=== PATIENT | male | born 1960 | race African-American/Black ===

== ENCOUNTER 2018-01-26 09:54 | Inpatient (IN) | payer OTHER ==
[2018-01-26 11:21] VITALS: BMI 29.8
--- NOTE | 2018-01-26 13:08 | HP ---
CIWA Score - CIWA Score Nausea/Vomitin-No Nausea/No Vomiting Muscle Tremors: 4-Moderate,w/Arms Extend Anxiety: 4-Mod. Anxious/Guarded Agitation: 4-Moderately Restless Paroxysmal Sweats: 1-Minimal Palms Moist Orientation: 0-Oriented Tacttile Disturbances: 2-Mild Itch/Numbness/Burn Auditory Disturbances: 0-None Visual Disturbances: 0-None Headache: 0-None Present CIWA-Ar Total Score: 15 Admission ROS S - HPI Chief Complaint: withdrawal sx from alcohol longest sobriety 1 year Allergies/Adverse Reactions: Allergies Allergy/AdvReac Type Severity Reaction Status Date / Time No Known Allergies Allergy Verified 01/26/18 13:03 History of Present Illness: 57 years old male with long history of alcohol dependence has hypertension gerd positive ppd and bipolar ii is admitted to detox Exam Limitations: No Limitations - Ebola screening Have you traveled outside of the country in the last 21 days: No (N) Have you had contact with anyone from an Ebola affected area: No Have you been sick,other than usual withdrawal symptoms: No Do you have a fever: No - Review of Systems Constitutional: Changes in sleep, Weight Stable EENT: reports: No Symptoms Reported Respiratory: reports: No Symptoms reported Cardiac: reports: No Symptoms Reported GI: reports: Nausea, Indigestion, Abdominal cramping : reports: No Symptoms Reported Musculoskeletal: reports: No Symptoms Reported Integumentary: reports: No Symptoms Reported Neuro: reports: Tremors Endocrine: reports: No Symptoms Reported Hematology: reports: No Symptoms Reported Psychiatric: reports: Judgement Intact, Orientated x3, Anxious, Depressed Other Systems: Reviewed and Negative Patient History - Patient Medical History Hx Anemia: No Hx Asthma: No Hx Chronic Obstructive Pulmonary Disease (COPD): No Hx Cancer: No Hx Cardiac Disorders: No Hx Congestive Heart Failure: No Hx Hypertension: Yes (on meds.) Hx Hypercholesterolemia: No Hx Pacemaker: No HX Cerebrovascular Accident: No Hx Seizures: No Hx Dementia: No Hx Diabetes: No Hx Gastrointestinal Disorders: Yes (Acid reflux.) Hx Liver Disease: No Hx Genitourinary Disorders: No Hx Sexually Transmitted Disorders: No Hx Renal Disease (ESRD): No Hx Thyroid Disease: No Hx Human Immunodeficiency Virus (HIV): No Hx Hepatitis C: No Hx Depression: No Hx Suicide Attempt: No Hx Bipolar Disorder: Yes Hx Schizophrenia: No - Patient Surgical History Past Surgical History: No - PPD History Previous Implant?: Yes Documented Results: Positive w/proof Implanted On Prior R Admission?: No PPD to be Administered?: No - Smoking Cessation Smoking history: Former smoker Have you smoked in the past 12 months: No If you are a former smoker, when did you quit?: 1995 Hx Chewing Tobacco Use: No Initiated information on smoking cessation: No - Substance & Tx. History Hx Alcohol Use: Yes Hx Substance Use: Yes Substance Use Type: Alcohol, Cocaine Hx Substance Use Treatment: Yes (2015 [facility] Family Disease History - Family Disease History Family Disease History: Heart Disease: Father (HTN/ ), Mother (HTN/ ), Other: Father Admission Physical Exam [facility] - Vital Signs Vital Signs: Vital Signs - 24 hr 01/26/18 11:18 Temperature 97.7 F Pulse Rate 90 Respiratory 18 Rate Blood Pressure 166/116 - Physical General Appearance: Yes: Appropriately Dressed, Mild Distress, Tremorous, Irritable, Sweating, Anxious HEENTM: Yes: Hearing grossly Normal, Normocephalic, Normal Voice Respiratory: Yes: Chest Non-Tender, Lungs Clear, Normal Breath Sounds, No Respiratory Distress, No Accessory Muscle Use Neck: Yes: Supple, Trachea in good position Breast: Yes: Breasts Symetrical, No Discharge Cardiology: Yes: S1, S2, Irregular (cocaine dependenc) Abdominal: Yes: Normal Bowel Sounds, Flat Genitourinary: Yes: Within Normal Limits Back: Yes: Normal Inspection Musculoskeletal: Yes: full range of Motion, Gait Steady, Back pain, Muscle Pain Extremities: Yes: Normal Inspection, Normal Range of Motion, Non-Tender, Tremors Neurological: Yes: Fully Oriented, Alert, Motor Strength 5/5, Normal Response, Depressed Affect Integumentary: Yes: Warm Lymphatic: Yes: Within Normal Limits - Diagnostic (1) Alcohol dependence with uncomplicated withdrawal Current Visit: Yes Status: Acute (2) GERD (gastroesophageal reflux disease) Current Visit: Yes Status: Chronic Qualifiers: Esophagitis presence: without esophagitis Qualified Code(s): K21.9 - Gastro -esophageal reflux disease without esophagitis (3) HTN (hypertension) Current Visit: Yes Status: Chronic Qualifiers: Hypertension type: essential hypertension Qualified Code(s): I10 - Essential (primary) hypertension Cleared for Admission [facility] - Detox or Rehab S Level of Care: Medically Managed Detox Regimen/Protocol: Librium BHS Breath Alcohol Content Breath Alcohol Content: 0.012 Urine Drug Screen - Control Is Test Valid: Yes - Results Drug Screen Negative: No Urine Drug Screen Results: THC-Marijuana, DESMOND-Cocaine
[2018-01-26] MEDS ORDERED: MENTHOL/PHENOL 1 EACH UD MM PRN (13:13)
[2018-01-26] MEDS ORDERED: MAGNESIUM CITRATE 300 ML BOTTLE PO PRN (13:13)
[2018-01-26] MEDS ORDERED: guaiFENesin/D-METHORPHAN HB 10 ML UNIT-DOSE CUPS PO PRN (13:13)
[2018-01-26] MEDS ORDERED: MAG HYDROX/AL HYDROX/SIMETH 30 ML UNIT-DOSE CUP PO PRN (13:13)
[2018-01-26] MEDS ORDERED: MAGNESIUM HYDROX 2400MG/30ML ORAL SUSPENSION 30 ML CUP PO PRN (13:13)
[2018-01-26] MEDS ORDERED: LOPERAMIDE HCL 2 MG CAPSULE PO PRN (13:13)
[2018-01-26] MEDS ORDERED: P-EPHED 60MG/TRIPROLIDI 2.5MG TABLET PO PRN (13:13)
[2018-01-26] MEDS ORDERED: chlordiazePOXIDE HCL 25 MG CAPSULE PO PRN (13:13)
[2018-01-26] MEDS ORDERED: ACETAMINOPHEN 325 MG TABLET (FP) PO PRN (13:13)
[2018-01-26] MEDS ORDERED: NAPROXEN 375 MG TABLET (FP) PO PRN (13:16)
[2018-01-26] MEDS: HYDROCHLOROTHIAZIDE 12.5 MG CAPSULE (FP) PO SCH (15:32)
[2018-01-26] MEDS: amLODIPine BESYLATE 5 MG TABLET (FP) PO SCH (15:32)
[2018-01-26 20:15] LABS: HEMATOCRIT 34.5 % (35.4-49); HEMOGLOBIN 11.4 GM/dL (11.7-16.9); MCH 27.8 pg (25.7-33.7); MCHC 33.1 g/dl (32.0-35.9); MEAN CELL VOLUME 83.9 fl (80-96); MEAN PLT VOLUME 9.8 fl (7.5-11.1); PLATELET COUNT 213 K/MM3 (134-434); RBC 4.11 M/mm3 (4.00-5.60); RDW 16.9 % (11.9-15.9); WHITE BLOOD COUNT 7.6 K/mm3 (4.0-10.0)
[2018-01-26 20:51] LABS: ALBUMIN 3.7 g/dl (3.4-5.0); ALK PHOS 64 U/L (45-117); ANION GAP 8 (8-16); BILIRUBIN,TOTAL 0.4 mg/dL (0.2-1.0); BLOOD UREA NITROGEN 11 mg/dL (7-18); CALCIUM 8.9 mg/dL (8.5-10.1); CHLORIDE 111 mmol/L (98-107); CO2 26 mmol/L (21-32); CREATININE 1.3 mg/dL (0.7-1.3); GLUCOSE,RANDOM 92 mg/dL (74-106); SGOT/AST 22 U/L (15-37); SGPT/ALT 31 U/L (12-78); SODIUM 145 mmol/L (136-145); TOT PROT 6.9 g/dl (6.4-8.2)
[2018-01-26] MEDS ORDERED: MELATONIN 5 MG TABLETS PO PRN (22:00)
--- NOTE | 2018-01-26 22:04 | EKG ---
Test Reason : Blood Pressure : / mmHG Vent. Rate : 059 BPM Atrial Rate : 059 BPM P-R Int : 184 ms QRS Dur : 078 ms QT Int : 440 ms P-R-T Axes : 046 002 027 degrees QTc Int : 435 ms SINUS BRADYCARDIA OTHERWISE NORMAL ECG NO PREVIOUS ECGS AVAILABLE Confirmed by ANNITA JARRELL MD ([id number]) on 01/26/2018 10:04:18 PM Referred By: Confirmed By:ANNITA JARRELL MD
[2018-01-26] MEDS: THIAMINE HCL 100 MG TABLET (FP) PO SCH (22:09)
[2018-01-26] MEDS: chlordiazePOXIDE HCL 25 MG CAPSULE PO SCH (22:09)
[2018-01-26] MEDS: RANITIDINE HCL 150 MG TABLET (FP) PO SCH (22:09)
[2018-01-26 23:08] LABS: URINE APPEARANCE CLEAR; URINE BILIRUBIN NEGATIVE (<2.0 mg/dL); URINE COLOR STRAW; URINE GLUCOSE (UA) NEGATIVE (NEGATIVE); URINE KETONE NEGATIVE (NEGATIVE); URINE LEUK ESTERASE NEGATIVE (NEGATIVE); URINE NITRITE NEGATIVE (NEGATIVE); URINE PROTEIN NEGATIVE (NEGATIVE); URINE UROBILINOGEN NEGATIVE mg/dL (0.2-1.0)
[2018-01-27] MEDS: chlordiazePOXIDE HCL 25 MG CAPSULE PO SCH ×4 (06:12→22:06)
[2018-01-27] MEDS: PRENATAL VITAMINS W/ FOLIC ACID TABLET (FP) PO SCH (10:33)
[2018-01-27] MEDS: RANITIDINE HCL 150 MG TABLET (FP) PO SCH ×2 (10:34→22:06)
[2018-01-27] MEDS: HYDROCHLOROTHIAZIDE 12.5 MG CAPSULE (FP) PO SCH (10:34)
[2018-01-27] MEDS: amLODIPine BESYLATE 5 MG TABLET (FP) PO SCH (10:34)
--- NOTE | 2018-01-27 10:53 | PN ---
[facility] CIWA - CIWA Score Nausea/Vomitin-No Nausea/No Vomiting Muscle Tremors: 4-Moderate,w/Arms Extend Anxiety: 4-Mod. Anxious/Guarded Agitation: 4-Moderately Restless Paroxysmal Sweats: 1-Minimal Palms Moist Orientation: 0-Oriented Tacttile Disturbances: 0-None Auditory Disturbances: 0-None Visual Disturbances: 0-None Headache: 0-None Present CIWA-Ar Total Score: 13 S Progress Note (SOAP) Subjective: LYING IN BED DURING ROUNDS. AWAKE ALERT O X 3. C/O SWEATS,ANXIETY,BACK ACHE, FATIGUE. Objective: 01/27/18 10:52 Vital Signs Temperature 97 F L 01/27/18 06:23 Pulse Rate 63 01/27/18 06:23 Respiratory Rate 18 01/27/18 06:23 Blood Pressure 156/96 01/27/18 06:23 O2 Sat by Pulse Oximetry (%) Laboratory Last Values WBC 7.6 K/mm3 (4.0-10.0) 01/26/18 14:00 RBC 4.11 M/mm3 (4.00-5.60) 01/26/18 14:00 Hgb 11.4 GM/dL (11.7-16.9) L 01/26/18 14:00 Hct 34.5 % (35.4-49) L 01/26/18 14:00 MCV 83.9 fl (80-96) 01/26/18 14:00 MCH 27.8 pg (25.7-33.7) 01/26/18 14:00 MCHC 33.1 g/dl (32.0-35.9) 01/26/18 14:00 RDW 16.9 % (11.9-15.9) H 01/26/18 14:00 Plt Count 213 K/MM3 (134-434) 01/26/18 14:00 MPV 9.8 fl (7.5-11.1) 01/26/18 14:00 Sodium 145 mmol/L (136-145) 01/26/18 14:00 Potassium 4.0 mmol/L (3.5-5.1) 01/26/18 14:00 Chloride 111 mmol/L (98-107) H 01/26/18 14:00 Carbon Dioxide 26 mmol/L (21-32) 01/26/18 14:00 Anion Gap 8 (8-16) 01/26/18 14:00 BUN 11 mg/dL (7-18) 01/26/18 14:00 Creatinine 1.3 mg/dL (0.7-1.3) 01/26/18 14:00 Creat Clearance w eGFR 57.31 (>60) 01/26/18 14:00 Random Glucose 92 mg/dL (74-106) 01/26/18 14:00 Calcium 8.9 mg/dL (8.5-10.1) 01/26/18 14:00 Total Bilirubin 0.4 mg/dL (0.2-1.0) 01/26/18 14:00 AST 22 U/L (15-37) 01/26/18 14:00 ALT 31 U/L (12-78) D 01/26/18 14:00 Alkaline Phosphatase 64 U/L (45-117) 01/26/18 14:00 Total Protein 6.9 g/dl (6.4-8.2) 01/26/18 14:00 Albumin 3.7 g/dl (3.4-5.0) 01/26/18 14:00 Urine Color Straw 01/26/18 23:00 Urine Appearance Clear 01/26/18 23:00 Urine pH 6.0 (5.0-8.0) 01/26/18 23:00 Ur Specific [place] 1.014 (1.001-1.035) 01/26/18 23:00 Urine Protein Negative (NEGATIVE) 01/26/18 23:00 Urine Glucose (UA) Negative (NEGATIVE) 01/26/18 23:00 Urine Ketones Negative (NEGATIVE) 01/26/18 23:00 Urine Blood Negative (NEGATIVE) 01/26/18 23:00 Urine Nitrite Negative (NEGATIVE) 01/26/18 23:00 Urine Bilirubin Negative (<2.0 mg/dL) 01/26/18 23:00 Urine Urobilinogen Negative mg/dL (0.2-1.0) 01/26/18 23:00 Ur Leukocyte Esterase Negative (NEGATIVE) 01/26/18 23:00 Assessment: 01/27/18 10:52 WITHDRAWAL SX Plan: CONTINUE DETOX
[2018-01-27] MEDS: amLODIPine BESYLATE 10 MG TABLET (FP) PO SCH (11:48)
--- NOTE | 2018-01-27 12:36 | CONSULT ---
[facility] Psychiatric Consult - Data Date of interview: 01/27/18 Admission source: [facility] Identifying data: Patient is approached at bedside for psychiatric interview.Mr singh DECLINED. " I don't have psychiatric problems.No disrepect, but I don't need to talk to a psychiatrist.Thank you." Nursing staff is made aware.
[2018-01-27] MEDS ORDERED: chlordiazePOXIDE HCL 25 MG CAPSULE PO ONE (14:00)
[2018-01-27] MEDS ORDERED: HYDROCHLOROTHIAZIDE 25 MG TABLET (FP) PO SCH (14:00)
[2018-01-27] MEDS: THIAMINE HCL 100 MG TABLET (FP) PO SCH (22:06)
[2018-01-28] MEDS: chlordiazePOXIDE HCL 25 MG CAPSULE PO SCH ×2 (05:48→10:27)
[2018-01-28 09:12] VITALS: BP 149/94; PULSE 76; TEMP 98.4
[2018-01-28] MEDS ORDERED: HYDROCHLOROTHIAZIDE 25 MG TABLET (FP) PO SCH (10:00)
[2018-01-28] MEDS: PRENATAL VITAMINS W/ FOLIC ACID TABLET (FP) PO SCH (10:27)
[2018-01-28] MEDS: RANITIDINE HCL 150 MG TABLET (FP) PO SCH (10:27)
[2018-01-28] MEDS: amLODIPine BESYLATE 10 MG TABLET (FP) PO SCH (10:27)
--- NOTE | 2018-01-28 12:11 | PN ---
S CIWA - CIWA Score Nausea/Vomitin-No Nausea/No Vomiting Muscle Tremors: 4-Moderate,w/Arms Extend Anxiety: 4-Mod. Anxious/Guarded Agitation: 4-Moderately Restless Paroxysmal Sweats: 1-Minimal Palms Moist Orientation: 0-Oriented Tacttile Disturbances: 0-None Auditory Disturbances: 0-None Visual Disturbances: 0-None Headache: 0-None Present CIWA-Ar Total Score: 13 [facility] Progress Note (SOAP) Subjective: ANXIETY,SWEATS,FATIGUE,FATIGUE. Objective: 01/28/18 12:09 Vital Signs Temperature 98.4 F 01/28/18 09:11 Pulse Rate 76 01/28/18 09:11 Respiratory Rate 18 01/28/18 09:11 Blood Pressure 149/94 01/28/18 09:11 O2 Sat by Pulse Oximetry (%) Laboratory Tests 01/26/18 01/26/18 01/26/18 12:00 14:00 14:00 WBC 7.6 RBC 4.11 Hgb 11.4 L Hct 34.5 L MCV 83.9 MCH 27.8 MCHC 33.1 RDW 16.9 H Plt Count 213 MPV 9.8 Sodium 145 Potassium 4.0 Chloride 111 H Carbon Dioxide 26 Anion Gap 8 BUN 11 Creatinine 1.3 Creat Clearance w eGFR 57.31 Random Glucose 92 Calcium 8.9 Total Bilirubin 0.4 AST 22 ALT 31 D Alkaline Phosphatase 64 Total Protein 6.9 Albumin 3.7 Urine Color Urine Appearance Urine pH Ur Specific [place] Urine Protein Urine Glucose (UA) Urine Ketones Urine Blood Urine Nitrite Urine Bilirubin Urine Urobilinogen Ur Leukocyte Esterase RPR Titer HIV 1&2 Antibody Screen Negative HIV P24 Antigen Negative 01/26/18 01/26/18 14:00 23:00 WBC RBC Hgb Hct MCV MCH MCHC RDW Plt Count MPV Sodium Potassium Chloride Carbon Dioxide Anion Gap BUN Creatinine Creat Clearance w eGFR Random Glucose Calcium Total Bilirubin AST ALT Alkaline Phosphatase Total Protein Albumin Urine Color Straw Urine Appearance Clear Urine pH 6.0 Ur Specific [place] 1.014 Urine Protein Negative Urine Glucose (UA) Negative Urine Ketones Negative Urine Blood Negative Urine Nitrite Negative Urine Bilirubin Negative Urine Urobilinogen Negative Ur Leukocyte Esterase Negative RPR Titer Nonreactive HIV 1&2 Antibody Screen HIV P24 Antigen Assessment: 01/28/18 12:09 WITHDRAWALS SX Plan: CONTINUE DETOX
--- NOTE | 2018-01-28 13:16 | PN ---
[facility] Progress Note Note: PT SUDDENLY REQUESTED HE WANTS TO LEAVE DECIDING TO DISCONTINUE DETOX [place]. PT DECLINED TO GIVE REASON FOR ACTION EXCEPT "I HAVE TO GO". "PERSONAL BUSINESS". ALERT O X 3. OOB AMBULATING WITH STEADY GAIT. NAD. PT REPORTS HE HAS PRIMARY CARE DR. HUGGINS AT [place], [place]. PT WAS SEEN AND SPOKEN TO BY HIS COUNSELOR, BERENICE MURCIA BEFORE EXITING THE UNIT. Vital Signs 01/28/18 01/28/18 01/28/18 06:13 06:30 09:11 Temperature 97.1 F L 98.4 F Pulse Rate 60 76 Respiratory 18 18 18 Rate Blood Pressure 121/73 149/94 Laboratory Tests 01/26/18 01/26/18 01/26/18 12:00 14:00 14:00 WBC 7.6 RBC 4.11 Hgb 11.4 L Hct 34.5 L MCV 83.9 MCH 27.8 MCHC 33.1 RDW 16.9 H Plt Count 213 MPV 9.8 Sodium 145 Potassium 4.0 Chloride 111 H Carbon Dioxide 26 Anion Gap 8 BUN 11 Creatinine 1.3 Creat Clearance w eGFR 57.31 Random Glucose 92 Calcium 8.9 Total Bilirubin 0.4 AST 22 ALT 31 D Alkaline Phosphatase 64 Total Protein 6.9 Albumin 3.7 Urine Color Urine Appearance Urine pH Ur Specific [place] Urine Protein Urine Glucose (UA) Urine Ketones Urine Blood Urine Nitrite Urine Bilirubin Urine Urobilinogen Ur Leukocyte Esterase RPR Titer HIV 1&2 Antibody Screen Negative HIV P24 Antigen Negative 01/26/18 01/26/18 14:00 23:00 WBC RBC Hgb Hct MCV MCH MCHC RDW Plt Count MPV Sodium Potassium Chloride Carbon Dioxide Anion Gap BUN Creatinine Creat Clearance w eGFR Random Glucose Calcium Total Bilirubin AST ALT Alkaline Phosphatase Total Protein Albumin Urine Color Straw Urine Appearance Clear Urine pH 6.0 Ur Specific [place] 1.014 Urine Protein Negative Urine Glucose (UA) Negative Urine Ketones Negative Urine Blood Negative Urine Nitrite Negative Urine Bilirubin Negative Urine Urobilinogen Negative Ur Leukocyte Esterase Negative RPR Titer Nonreactive HIV 1&2 Antibody Screen HIV P24 Antigen PT SIGNED OUT AMA.
--- NOTE | 2018-01-28 13:17 | DS ---
[facility] Detox Discharge Summary Admission Date: 01/26/18 Discharge Date: 01/28/18 - History Present History: Alcohol Dependence, Cocaine Dependence Additional Comments: PT SIGNED OUT AMA. LAUREANO. PT STATES HE HAS PRIMARY CARE AT [facility] AND WILL FOLLOW UP WITH HIS PMD DR. HUGGINS FOR MEDICAL MANAGEMENT. PT HAS OWN MEDS AT HOME.. Pertinent Past History: PLEASE SEE DX BELOW - Physical Exam Results Vital Signs: Vital Signs Temperature 98.4 F 01/28/18 09:11 Pulse Rate 76 01/28/18 09:11 Respiratory Rate 18 01/28/18 09:11 Blood Pressure 149/94 01/28/18 09:11 O2 Sat by Pulse Oximetry (%) Pertinent Admission Physical Exam Findings: WITHDRAWAL SX Laboratory Tests 01/26/18 01/26/18 01/26/18 12:00 14:00 14:00 WBC 7.6 RBC 4.11 Hgb 11.4 L Hct 34.5 L MCV 83.9 MCH 27.8 MCHC 33.1 RDW 16.9 H Plt Count 213 MPV 9.8 Sodium 145 Potassium 4.0 Chloride 111 H Carbon Dioxide 26 Anion Gap 8 BUN 11 Creatinine 1.3 Creat Clearance w eGFR 57.31 Random Glucose 92 Calcium 8.9 Total Bilirubin 0.4 AST 22 ALT 31 D Alkaline Phosphatase 64 Total Protein 6.9 Albumin 3.7 Urine Color Urine Appearance Urine pH Ur Specific [place] Urine Protein Urine Glucose (UA) Urine Ketones Urine Blood Urine Nitrite Urine Bilirubin Urine Urobilinogen Ur Leukocyte Esterase RPR Titer HIV 1&2 Antibody Screen Negative HIV P24 Antigen Negative 01/26/18 01/26/18 14:00 23:00 WBC RBC Hgb Hct MCV MCH MCHC RDW Plt Count MPV Sodium Potassium Chloride Carbon Dioxide Anion Gap BUN Creatinine Creat Clearance w eGFR Random Glucose Calcium Total Bilirubin AST ALT Alkaline Phosphatase Total Protein Albumin Urine Color Straw Urine Appearance Clear Urine pH 6.0 Ur Specific [place] 1.014 Urine Protein Negative Urine Glucose (UA) Negative Urine Ketones Negative Urine Blood Negative Urine Nitrite Negative Urine Bilirubin Negative Urine Urobilinogen Negative Ur Leukocyte Esterase Negative RPR Titer Nonreactive HIV 1&2 Antibody Screen HIV P24 Antigen - Treatment Hospital Course: Discharged Condition Good - Medication Discharge Medications: Ambulatory Orders Amlodipine Besylate [Norvasc -] 10 mg PO DAILY 05/21/16 Hydrochlorothiazide [Hctz -] 25 mg PO DAILY 05/21/16 - Diagnosis (1) Alcohol dependence with uncomplicated withdrawal Status: Acute (2) GERD (gastroesophageal reflux disease) Status: Chronic Qualifiers: Esophagitis presence: without esophagitis Qualified Code(s): K21.9 - Gastro -esophageal reflux disease without esophagitis (3) HTN (hypertension) Status: Chronic Qualifiers: Hypertension type: essential hypertension Qualified Code(s): I10 - Essential (primary) hypertension (4) Cannabis dependence, uncomplicated Status: Acute (5) Cocaine dependence, uncomplicated Status: Acute - AMA Did Patient Leave Against Medical Advice: Yes (AMA)
[2018-01-28] MEDS ORDERED: chlordiazePOXIDE 5 MG CAPSULE PO SCH (23:00)
[2018-01-29] MEDS ORDERED: chlordiazePOXIDE HCL 10 MG CAPSULE PO SCH (23:00)
== END 2018-01-28 13:04 | disposition left against medical advice (07) | DRG 770 ==
LOC: YASAS 09:54 → Y3N 14:10
PROVIDERS: ADMIT Internal Medicine; ATTEND Internal Medicine
PROC: HZ2ZZZZ Detoxification Services for Substance Abuse Treatment (ICD-10-PCS; principal; 2018-01-26)
DX: F10.230 Alcohol dependence with withdrawal, uncomplicated (principal); F14.20 Cocaine dependence, uncomplicated; F12.20 Cannabis dependence, uncomplicated; I10 Essential (primary) hypertension; K21.9 Gastro-esophageal reflux disease without esophagitis
CPT/HCPCS: 36415; 71046-TC-FY; 80053; 81003; 85027; 86593; 87389; 93005; 93010

== ENCOUNTER 2018-03-04 11:54 | Inpatient (IN) | payer OTHER ==
[2018-03-04 16:01] VITALS: BMI 29.5
--- NOTE | 2018-03-04 16:52 | HP ---
[facility] Chief Complaint: Patient presents for rehab services for ETOH and cocaine dependence. Allergies/Adverse Reactions: Allergies Allergy/AdvReac Type Severity Reaction Status Date / Time No Known Allergies Allergy Verified 03/04/18 17:20 History of Present Illness: Patient presents for rehab services for ETOH and cocaine dependence. Patient recently admitted for detox at [facility] last month. Signed out AMA and stated he was not ready. Last drink was 2 days ago. Patient began drinking at age 15 and drinks up to 2 pints daily. Denies seizures from ETOH use. Also uses smokes cocaine and last time he used was yesterday. Uses up to a few grams daily. Patient has hx of HTN. Compliant with medication. Denies SI/HI and suicide attempts. Exam Limitations: No Limitations - Ebola screening Have you traveled outside of the country in the last 21 days: No (N) Have you had contact with anyone from an Ebola affected area: No Have you been sick,other than usual withdrawal symptoms: No Do you have a fever: No - Review of Systems Constitutional: Changes in sleep, Weight Stable EENT: reports: No Symptoms Reported Respiratory: reports: No Symptoms reported Cardiac: reports: No Symptoms Reported GI: reports: Indigestion : reports: No Symptoms Reported Musculoskeletal: reports: Muscle Pain Integumentary: reports: No Symptoms Reported Neuro: reports: No Symptoms reported Endocrine: reports: No Symptoms Reported Hematology: reports: No Symptoms Reported Psychiatric: reports: Orientated x3, Anxious, Depressed Patient History - Patient Medical History Hx Anemia: No Hx Asthma: No Hx Chronic Obstructive Pulmonary Disease (COPD): No Hx Cancer: No Hx Cardiac Disorders: No Hx Congestive Heart Failure: No Hx Hypertension: Yes (on meds.) Hx Hypercholesterolemia: No Hx Pacemaker: No HX Cerebrovascular Accident: No Hx Seizures: No Hx Dementia: No Hx Diabetes: No Hx Gastrointestinal Disorders: Yes (Acid reflux.) Hx Liver Disease: No Hx Genitourinary Disorders: No Hx Sexually Transmitted Disorders: No Hx Renal Disease (ESRD): No Hx Thyroid Disease: No Hx Human Immunodeficiency Virus (HIV): No Hx Hepatitis C: No Hx Depression: No Hx Suicide Attempt: No Hx Bipolar Disorder: Yes Hx Schizophrenia: No - Patient Surgical History Past Surgical History: No Hx Neurologic Surgery: No Hx Cataract Extraction: No Hx Cardiac Surgery: No Hx Lung Surgery: No Hx Breast Surgery: No Hx Breast Biopsy: No Hx Abdominal Surgery: No Hx Appendectomy: No Hx Cholecystectomy: No Hx Genitourinary Surgery: No Hx Orthopedic Surgery: No Anesthesia Reaction: No - PPD History PPD to be Administered?: No - Smoking Cessation Smoking history: Former smoker Have you smoked in the past 12 months: No If you are a former smoker, when did you quit?: 1995 Hx Chewing Tobacco Use: No Initiated information on smoking cessation: No - Substance & Tx. History Hx Alcohol Use: Yes Hx Substance Use: Yes Substance Use Type: Alcohol, Cocaine, Marijuana Hx Substance Use Treatment: Yes - Substances Abused Alcohol Route: Oral Frequency: 1-2 times per week Amount used: 1 pint vodka or rum Age of first use: 17 Date of Last Use: 03/02/18 Cocaine Route: Inhalation Frequency: Daily Amount used: 2 grams Age of first use: 22 Date of Last Use: 03/02/18 Marijuana/Hashish Route: Smoking Frequency: Daily Amount used: 2 bags Age of first use: 15 Date of Last Use: 03/03/18 Family Disease History - Family Disease History Family Disease History: Heart Disease: Father (HTN/ ), Mother (HTN/ ), Other: Father Admission Physical Exam [facility] - Vital Signs Vital Signs: Vital Signs - 24 hr 03/04/18 15:49 Temperature 97 F L Pulse Rate 76 Respiratory 20 Rate Blood Pressure 134/86 - Physical General Appearance: Yes: Nourished, Appropriately Dressed, Anxious HEENTM: Yes: EOMI, Hearing grossly Normal, Normocephalic, Normal Voice, VILMA, Pharynx Normal Respiratory: Yes: Chest Non-Tender, Lungs Clear, Normal Breath Sounds, No Respiratory Distress, No Accessory Muscle Use Neck: Yes: No masses,lesions,Nodules, Supple, Trachea in good position Breast: Yes: Breast Exam Deferred Cardiology: Yes: Within Normal Limits, Regular Rhythm, Regular Rate, S1, S2 Abdominal: Yes: Normal Bowel Sounds, Non Tender, Soft Genitourinary: Yes: Within Normal Limits Back: Yes: Muscle Spasm Musculoskeletal: Yes: full range of Motion, Gait Steady, Back pain Extremities: Yes: Normal Inspection, Normal Range of Motion, Non-Tender Neurological: Yes: engine dynamometer tester II-XII NML intact, Fully Oriented, Alert, Motor Strength 5/5, Depressed Affect Integumentary: Yes: Normal Color, Dry, Warm Lymphatic: Yes: Within Normal Limits - Diagnostic (1) Alcohol dependence Current Visit: Yes Status: Chronic Qualifiers: Substance use status: uncomplicated Qualified Code(s): F10.20 - Alcohol dependence, uncomplicated (2) Cannabis dependence, uncomplicated Current Visit: Yes Status: Chronic (3) Cocaine dependence, uncomplicated Current Visit: Yes Status: Chronic (4) GERD (gastroesophageal reflux disease) Current Visit: Yes Status: Chronic Qualifiers: Esophagitis presence: without esophagitis Qualified Code(s): K21.9 - Gastro -esophageal reflux disease without esophagitis (5) HTN (hypertension) Current Visit: Yes Status: Chronic Qualifiers: Hypertension type: essential hypertension Qualified Code(s): I10 - Essential (primary) hypertension Cleared for Admission [facility] - Detox or Rehab Claeared for Rehab Admission: Yes S Breath Alcohol Content Breath Alcohol Content: 0 Urine Drug Screen - Results Drug Screen Negative: No Urine Drug Screen Results: THC-Marijuana, DESMOND-Cocaine, BZO-Benzodiazepines Inpatient Rehab Admission - Initial Determination Are CD services needed?: Yes Free of communicable disease: Yes Not in need of hospitalization: Yes - Rehab Admission Criteria Previous failed treatment: Yes Poor recovery environment: Yes Comorbidities: Yes Lacks judgement: Yes Patient is meeting Inpatient Rehab admission criteria:: Yes
[2018-03-04] MEDS ORDERED: LOPERAMIDE HCL 2 MG CAPSULE PO PRN (17:46)
[2018-03-04] MEDS ORDERED: MAGNESIUM CITRATE 300 ML BOTTLE PO PRN (17:46)
[2018-03-04] MEDS ORDERED: MAG HYDROX/AL HYDROX/SIMETH 30 ML UNIT-DOSE CUP PO PRN (17:46)
[2018-03-04] MEDS ORDERED: hydrOXYzine PAMOATE 50 MG CAPSULE (FP) PO PRN (17:46)
[2018-03-04] MEDS ORDERED: MENTHOL/PHENOL 1 EACH UD MM PRN (17:46)
[2018-03-04] MEDS ORDERED: MAGNESIUM HYDROX 2400MG/30ML ORAL SUSPENSION 30 ML CUP PO PRN (17:46)
[2018-03-04] MEDS: THIAMINE HCL 100 MG TABLET (FP) PO SCH (21:34)
[2018-03-04] MEDS ORDERED: MELATONIN 5 MG TABLETS PO PRN (22:00)
[2018-03-05 06:31] LABS: URINE APPEARANCE CLEAR; URINE BILIRUBIN NEGATIVE (<2.0 mg/dL); URINE BLOOD NEGATIVE (NEGATIVE); URINE COLOR LTYELLOW; URINE GLUCOSE (UA) NEGATIVE (NEGATIVE); URINE KETONE NEGATIVE (NEGATIVE); URINE LEUK ESTERASE NEGATIVE (NEGATIVE); URINE NITRITE NEGATIVE (NEGATIVE); URINE PROTEIN NEGATIVE (NEGATIVE); URINE UROBILINOGEN NEGATIVE mg/dL (0.2-1.0)
[2018-03-05] MEDS ORDERED: PANTOPRAZOLE 40 MG TABLET (FP) PO SCH (10:00)
[2018-03-05] MEDS: amLODIPine BESYLATE 5 MG TABLET (FP) PO SCH (10:08)
[2018-03-05] MEDS: HYDROCHLOROTHIAZIDE 12.5 MG CAPSULE (FP) PO SCH (10:08)
[2018-03-05] MEDS: PRENATAL VITAMINS W/ FOLIC ACID TABLET (FP) PO SCH (10:08)
[2018-03-05 10:40] LABS: HEMATOCRIT 37.2 % (35.4-49); HEMOGLOBIN 11.9 GM/dL (11.7-16.9); MCH 27.6 pg (25.7-33.7); MCHC 31.9 g/dl (32.0-35.9); MEAN CELL VOLUME 86.6 fl (80-96); MEAN PLT VOLUME 10.2 fl (7.5-11.1); PLATELET COUNT 182 K/MM3 (134-434); RBC 4.29 M/mm3 (4.00-5.60); RDW 17.1 % (11.9-15.9); WHITE BLOOD COUNT 5.7 K/mm3 (4.0-10.0)
[2018-03-05 10:44] LABS: CHLORIDE 107 mmol/L (98-107); POTASSIUM 3.7 mmol/L (3.5-5.1); SODIUM 142 mmol/L (136-145)
--- NOTE | 2018-03-05 11:42 | EKG ---
Test Reason : Blood Pressure : / mmHG Vent. Rate : 081 BPM Atrial Rate : 081 BPM P-R Int : 196 ms QRS Dur : 080 ms QT Int : 360 ms P-R-T Axes : 058 038 011 degrees QTc Int : 418 ms NORMAL SINUS RHYTHM NONSPECIFIC T WAVE ABNORMALITY ABNORMAL ECG WHEN COMPARED WITH ECG OF 26-JAN-2018 15:26, NO SIGNIFICANT CHANGE WAS FOUND Confirmed by GUSTAVO SPICER MD ([id number]) on 03/05/2018 11:42:05 AM Referred By: Confirmed By:GUSTAVO SPICER MD
[2018-03-05 11:55] LABS: ALBUMIN 2.9 g/dl (3.4-5.0); ALK PHOS 59 U/L (45-117); ANION GAP 10 (8-16); BILIRUBIN,TOTAL 0.3 mg/dL (0.2-1.0); BLOOD UREA NITROGEN 13 mg/dL (7-18); CALCIUM 8.7 mg/dL (8.5-10.1); CO2 25 mmol/L (21-32); CREATININE 1.3 mg/dL (0.7-1.3); GLUCOSE,RANDOM 156 mg/dL (74-106); SGOT/AST 26 U/L (15-37); SGPT/ALT 26 U/L (12-78); TOT PROT 5.9 g/dl (6.4-8.2)
--- NOTE | 2018-03-05 13:18 | PN ---
[facility] Progress Note Note: Patient c/o of feeling tire and mild abdominal ache. Reports "he just needs to sleep it off" Vital Signs Temperature 99.5 F 03/05/18 07:22 Pulse Rate 78 03/05/18 07:22 Respiratory Rate 18 03/05/18 07:22 Blood Pressure 151/95 03/05/18 07:22 O2 Sat by Pulse Oximetry (%) Laboratory Last Values WBC 5.7 K/mm3 (4.0-10.0) 03/05/18 08:30 RBC 4.29 M/mm3 (4.00-5.60) 03/05/18 08:30 Hgb 11.9 GM/dL (11.7-16.9) 03/05/18 08:30 Hct 37.2 % (35.4-49) 03/05/18 08:30 MCV 86.6 fl (80-96) 03/05/18 08:30 MCH 27.6 pg (25.7-33.7) 03/05/18 08:30 MCHC 31.9 g/dl (32.0-35.9) L 03/05/18 08:30 RDW 17.1 % (11.9-15.9) H 03/05/18 08:30 Plt Count 182 K/MM3 (134-434) 03/05/18 08:30 MPV 10.2 fl (7.5-11.1) 03/05/18 08:30 Sodium 142 mmol/L (136-145) 03/05/18 08:30 Potassium 3.7 mmol/L (3.5-5.1) 03/05/18 08:30 Chloride 107 mmol/L (98-107) 03/05/18 08:30 Carbon Dioxide 25 mmol/L (21-32) 03/05/18 08:30 Anion Gap 10 (8-16) 03/05/18 08:30 BUN 13 mg/dL (7-18) 03/05/18 08:30 Creatinine 1.3 mg/dL (0.7-1.3) 03/05/18 08:30 Creat Clearance w eGFR 57.31 (>60) 03/05/18 08:30 Random Glucose 156 mg/dL (74-106) H D 03/05/18 08:30 Calcium 8.7 mg/dL (8.5-10.1) 03/05/18 08:30 Total Bilirubin 0.3 mg/dL (0.2-1.0) D 03/05/18 08:30 AST 26 U/L (15-37) 03/05/18 08:30 ALT 26 U/L (12-78) 03/05/18 08:30 Alkaline Phosphatase 59 U/L (45-117) 03/05/18 08:30 Total Protein 5.9 g/dl (6.4-8.2) L 03/05/18 08:30 Albumin 2.9 g/dl (3.4-5.0) L D 03/05/18 08:30 Urine Color L[place]ellow 03/04/18 22:00 Urine Appearance Clear 03/04/18 22:00 Urine pH 5.0 (5.0-8.0) 03/04/18 22:00 Ur Specific [place] 1.018 (1.001-1.035) 03/04/18 22:00 Urine Protein Negative (NEGATIVE) 03/04/18 22:00 Urine Glucose (UA) Negative (NEGATIVE) 03/04/18 22:00 Urine Ketones Negative (NEGATIVE) 03/04/18 22:00 Urine Blood Negative (NEGATIVE) 03/04/18 22:00 Urine Nitrite Negative (NEGATIVE) 03/04/18 22:00 Urine Bilirubin Negative (<2.0 mg/dL) 03/04/18 22:00 Urine Urobilinogen Negative mg/dL (0.2-1.0) 03/04/18 22:00 Ur Leukocyte Esterase Negative (NEGATIVE) 03/04/18 22:00 A/P AOX3 in no apprent distress no adventitious breath sounds no JVD skin intact, no edema BS x4, non tender, non distended Plan: A1C in the AM BGM ACBK increase fluids continue to monitor
--- NOTE | 2018-03-05 14:52 | HP ---
Psychiatrist Admission - Data Date of interview: 03/05/18 Admission source: [facility] Identifying data: Patient is a 57 year old single male, father of two, unemployed, and currently homeless. This is patient's first admission to rehab. Pt. admitted to for cocaine dependence. Medical History: hypertension, acid reflux Psychiatric History: Pt. denies h/o psychiatric hospitalization, outpatient care , and suicide attempt. As per pharmacy claims patient is prescribed risperdal 2mg BID and mirtzapine 15 qhs. Pt. made aware of the psychotrophic medications that he has been prescribed but continued to refuse any h/o psychiatric treatment. Pt. stated, " I don't know what you are talking about. Thats not me. I don't take medications." Pt. is unreliable and unwilling to provide information on his psychiatric medication. Will continue to monitor patient. Physical/Sexual Abuse/Trauma History: Denies. Vital Signs: Vital Signs - 24 hr 03/04/18 03/05/18 03/05/18 15:49 00:30 03:30 Temperature 97 F L Pulse Rate 76 Respiratory 20 18 18 Rate Blood Pressure 134/86 03/05/18 07:22 Temperature 99.5 F Pulse Rate 78 Respiratory 18 Rate Blood Pressure 151/95 Allergies/Adverse Reactions: Allergies Allergy/AdvReac Type Severity Reaction Status Date / Time No Known Allergies Allergy Verified 03/04/18 17:20 Date of last physical exam: 03/04/18 Concur with the findings of this exam: Yes - Substance Abuse/Tx History Hx Alcohol Use: Yes ("couple beers per week") Hx Substance Use: Yes (Cocaine- "couple gram" Marijuana- "2 grams per day") Substance Use Type: Cocaine, Marijuana Hx Substance Use Treatment: No Mental Status Exam - Mental Status Exam Alert and Oriented to: Time, Place, Person Cognitive Function: Good Patient Appearance: Well Groomed Mood: Withdrawn, Euthymic Affect: Mood Congruent Patient Behavior: Guarded, Appropriate Speech Pattern: Appropriate Voice Loudness: Normal Thought Process: Intact, Goal Oriented Thought Disorder: Not Present Hallucinations: Denies Suicidal Ideation: Denies Homicidal Ideation: Denies Insight/Judgement: Poor Sleep: Fair Appetite: Fair Muscle strength/Tone: Normal Gait/Station: Normal Psychiatric Findings - Problem List ([place] 1, 2,3) (1) Cannabis dependence, uncomplicated Current Visit: Yes Status: Chronic (2) Cocaine dependence, uncomplicated Current Visit: Yes Status: Chronic (3) Alcohol dependence Current Visit: Yes Status: Chronic Qualifiers: Substance use status: uncomplicated Qualified Code(s): F10.20 - Alcohol dependence, uncomplicated (4) Substance induced mood disorder Current Visit: Yes Status: Acute - Initial Treatment Plan Initial Treatment Plan: Psychoeducation provided. Rehabilitation in progress. Observation. Pt. refuses to accept psychotropic medications.
[2018-03-05] MEDS: THIAMINE HCL 100 MG TABLET (FP) PO SCH (21:35)
[2018-03-06] MEDS: P-EPHED 60MG/TRIPROLIDI 2.5MG TABLET PO PRN (07:08)
[2018-03-06] MEDS: ACETAMINOPHEN 325 MG TABLET (FP) PO PRN (07:08)
[2018-03-06] MEDS: guaiFENesin/D-METHORPHAN HB 10 ML UNIT-DOSE CUPS PO PRN ×2 (07:09→15:16)
[2018-03-06] MEDS ORDERED: PANTOPRAZOLE 40 MG TABLET (FP) PO SCH (08:00)
[2018-03-06] MEDS: PANTOPRAZOLE 40 MG TABLET (FP) PO SCH (10:12)
[2018-03-06] MEDS: amLODIPine BESYLATE 5 MG TABLET (FP) PO SCH (10:12)
[2018-03-06] MEDS: HYDROCHLOROTHIAZIDE 12.5 MG CAPSULE (FP) PO SCH (10:12)
[2018-03-06] MEDS: PRENATAL VITAMINS W/ FOLIC ACID TABLET (FP) PO SCH (10:12)
[2018-03-06] MEDS: THIAMINE HCL 100 MG TABLET (FP) PO SCH (21:01)
[2018-03-07] MEDS: ACETAMINOPHEN 325 MG TABLET (FP) PO PRN (01:38)
[2018-03-07] MEDS: guaiFENesin/D-METHORPHAN HB 10 ML UNIT-DOSE CUPS PO PRN ×2 (01:38→21:24)
[2018-03-07] MEDS: HYDROCHLOROTHIAZIDE 12.5 MG CAPSULE (FP) PO SCH (09:42)
[2018-03-07] MEDS: PRENATAL VITAMINS W/ FOLIC ACID TABLET (FP) PO SCH (09:42)
[2018-03-07] MEDS: PANTOPRAZOLE 40 MG TABLET (FP) PO SCH (09:42)
[2018-03-07] MEDS: P-EPHED 60MG/TRIPROLIDI 2.5MG TABLET PO PRN (09:43)
[2018-03-07] MEDS: amLODIPine BESYLATE 5 MG TABLET (FP) PO SCH (09:44)
[2018-03-07] MEDS: IBUPROFEN 400 MG TABLET (FP) PO PRN (17:00)
[2018-03-07] MEDS: THIAMINE HCL 100 MG TABLET (FP) PO SCH (21:23)
[2018-03-08] MEDS: IBUPROFEN 400 MG TABLET (FP) PO PRN ×2 (09:10→21:25)
[2018-03-08] MEDS: guaiFENesin/D-METHORPHAN HB 10 ML UNIT-DOSE CUPS PO PRN ×2 (09:11→21:25)
[2018-03-08] MEDS: amLODIPine BESYLATE 5 MG TABLET (FP) PO SCH (09:11)
[2018-03-08] MEDS: PANTOPRAZOLE 40 MG TABLET (FP) PO SCH (09:11)
[2018-03-08] MEDS: HYDROCHLOROTHIAZIDE 12.5 MG CAPSULE (FP) PO SCH (09:11)
[2018-03-08] MEDS: PRENATAL VITAMINS W/ FOLIC ACID TABLET (FP) PO SCH (09:11)
[2018-03-08] MEDS: THIAMINE HCL 100 MG TABLET (FP) PO SCH (21:25)
[2018-03-09] MEDS: HYDROCHLOROTHIAZIDE 12.5 MG CAPSULE (FP) PO SCH (10:16)
[2018-03-09] MEDS: PRENATAL VITAMINS W/ FOLIC ACID TABLET (FP) PO SCH (10:16)
[2018-03-09] MEDS: PANTOPRAZOLE 40 MG TABLET (FP) PO SCH (10:17)
[2018-03-09] MEDS: amLODIPine BESYLATE 5 MG TABLET (FP) PO SCH (10:17)
[2018-03-09] MEDS: IBUPROFEN 400 MG TABLET (FP) PO PRN ×2 (15:40→21:37)
[2018-03-09] MEDS: THIAMINE HCL 100 MG TABLET (FP) PO SCH (21:35)
[2018-03-09] MEDS: METHYL SALICYLATE/MENTHOL OINT 30 GM TUBE TP SCH (21:36)
[2018-03-10 06:44] VITALS: BP 150/86; PULSE 68; TEMP 98.5
[2018-03-10] MEDS: IBUPROFEN 400 MG TABLET (FP) PO PRN (08:53)
[2018-03-10] MEDS: PANTOPRAZOLE 40 MG TABLET (FP) PO SCH (10:19)
[2018-03-10] MEDS: PRENATAL VITAMINS W/ FOLIC ACID TABLET (FP) PO SCH (10:20)
[2018-03-10] MEDS: amLODIPine BESYLATE 5 MG TABLET (FP) PO SCH (10:20)
[2018-03-10] MEDS: HYDROCHLOROTHIAZIDE 12.5 MG CAPSULE (FP) PO SCH (10:20)
[2018-03-10] MEDS: METHYL SALICYLATE/MENTHOL OINT 30 GM TUBE TP SCH (10:21)
--- NOTE | 2018-03-10 13:07 | PN ---
[facility] Progress Note Note: Patient left AMA. Patient to follow up with PMD.
[2018-03-11] MEDS ORDERED: HYDROCHLOROTHIAZIDE 25 MG TABLET (FP) PO SCH (10:00)
== END 2018-03-10 13:20 | disposition left against medical advice (07) | DRG 770 ==
LOC: YASAS 11:54 → Y5N 18:24
PROVIDERS: ADMIT Surgery; ATTEND Surgery
PROC: HZ2ZZZZ Detoxification Services for Substance Abuse Treatment (ICD-10-PCS; principal; 2018-03-06)
DX: F10.230 Alcohol dependence with withdrawal, uncomplicated (principal); F14.20 Cocaine dependence, uncomplicated; F12.20 Cannabis dependence, uncomplicated; I10 Essential (primary) hypertension; K21.9 Gastro-esophageal reflux disease without esophagitis; R73.9 Hyperglycemia, unspecified; Z87.891 Personal history of nicotine dependence
CPT/HCPCS: 36415; 80053; 81003; 82962; 83036; 85027; 86593; 87389; 93005; 93010